=== PATIENT | female | born 1995 | race Asian ===

== ENCOUNTER 2016-12-24 20:04 | Emergency (ER) | payer OTHER, BC ==
[~2016-12-24] VITALS: Ht 165.1 cm; Wt 58.0 kg
[2016-12-24 20:07] VITALS: TEMP 36.5; Ht 165.1 cm; Wt 58.0 kg
[2016-12-24] MEDS ORDERED: TRAMADOL HCL 50 MG HOME PACK PO ONE (20:30)
[2016-12-24] MEDS ORDERED: ONDANSETRON HOME PACK 4MG OD TAB PO ONE (20:30)
[2016-12-24] MEDS ORDERED: ONDA4TAB10 SL (20:31)
[2016-12-24] MEDS ORDERED: TRAM-10 PO (20:31)
[2016-12-24 21:08] VITALS: BP 125/77; PULSE 69; O2SAT 100
--- NOTE | 2016-12-25 00:18 | EMERGENCY ROOM VISIT NOTE ---
History First contact with patient: 20:15 Chief Complaint: FALL Stated Complaint: FELL YESTERDAY,FEELING DIZZY,NAUSEA History of Present Illness The patient is a 21 year old female who presents to the Emergency Room with complaints of persistent headache, dizziness and nausea. The patient reports that she slipped on ice and fell yesterday, striking her head on the ground. There was no loss of consciousness. The patient reports that she did have some dizziness last evening. She woke up this morning and felt fine. After classes were over this afternoon, she went back to her apartment and fell asleep. When she woke up at 5 PM, she had a worsening headache and nausea. She denies any other injuries from her fall except for mild left sided neck pain. The patient denies any prior history of concussions. She currently rates her discomfort a 7 out of 10. Review of Systems 10 system review was performed and was negative except for pertinent positives and negatives as indicated in history of present illness Past Medical/Surgical History Medical Problems: (1) No significant past medical history Surgical Problems: (1) No history of previous surgery Social History Smoking Status: Never Smoker Alcohol Use: none Marital Status: single Occupation Status: [employer] student Current/Historical Medications Scheduled Ondasetron Odt (Zofran Odt), 4 MG SL Q6H Scheduled PRN Tramadol (Ultram), 1-2 TAB PO Q4H PRN for Pain Allergies Coded Allergies: No Known Allergies (Unverified , 12/24/16) Physical Exam Vital Signs Date Time Temp Pulse Resp B/P Pulse Ox O2 Delivery O2 Flow Rate FiO2 12/24/16 21:08 69 18 125/77 100 12/24/16 20:07 36.5 72 18 126/76 100 Room Air Pain Rating (0-10): 6.0 Physical Exam CONSTITUTIONAL: Healthy and well nourished. Alert and oriented X 3 with positive affect. GCS 15. The patient does appear in mild to moderate discomfort from her headache. HEENT: Normocephalic, atraumatic. No scalp hematomas or abrasions. Pupils equal, round and reactive. No subconjunctival hemorrhage, epistaxis, hemotympanum, raccoon's eyes or Hameed sign. NECK: The patient has mild tenderness to palpation of the left sternocleidomastoid muscle. She has no focal tenderness to the central cervical spine or paraspinous muscles. She exhibits full active range of motion without significant discomfort. RESPIRATORY: Clear to auscultation bilaterally with no wheezing, crackles, rhonchi or stridor. CARDIOVASCULAR: Regular rate and rhythm with no murmurs, rubs or gallops. MUSCULOSKELETAL: Patient has no discomfort with range of motion of the shoulders. No tenderness to palpation through the central thoracolumbar spine or ribs. Distal pulses are intact. INTEGUMENTARY: No rash or other significant dermatologic conditions noted. NEUROLOGIC: Cranial nerves II-XII grossly intact. No focal neurologic deficits noted. Normal finger to nose test. Negative pronator drift. No ataxia with ambulation. Medical Decision & Procedures Medications Administered Medications (Trade) Dose Ordered Sig/Elsa Route Start Time Stop Time Status Last Admin Dose Admin Tramadol HCl (Ultram Home Pack) 1 homepack UD ONCE PO 12/24/16 20:30 2 20:31 DC 12/24/16 21:05 1 HOMEPACK Ondansetron HCl (ZOFRAN ODT 4MG Home Pack) 1 homepack UD ONCE PO 12/24/16 20:30 12/24/16 20:31 DC 12/24/16 21:05 1 HOMEPACK ED Course Patient history and physical exam were performed. Nurse's notes were reviewed. Vital signs were reviewed and were normal. I explained to the patient that her symptoms after sustaining a closed head injury are consistent with a concussion. I spent approximately 5-10 minutes in education regarding concussions. I also explained the risk of possible intracranial bleed, which usually causes worsening symptoms. I also discussed CT scanning for cases in which concern for intracranial bleed is a concern. I also discussed the risks with radiation exposure. I discussed conservative management of concussion symptoms, and watchful waiting for any worsening symptoms. Based on our discussion, and with friends present, the patient elected conservative management. The patient was instructed to return to the emergency department for progressively worsening symptoms. Her roommate was with her today. The patient was provided home packs and prescriptions for tramadol and Zofran ODT. She was instructed to refrain from NSAIDs, and take Tylenol as needed for additional pain relief. She may also follow-up with [facility] as needed for further concussion management. The patient was happy with plan of care, voiced understanding of all discharge instructions, and rated her symptoms a 4 out of 10 at the conclusion of my exam. Medical Decision See previous section Impression Primary Impression: Concussion Additional Impression: Fall due to slipping on ice or snow Departure Information Dispostion Home / Self-Care Condition GOOD Prescriptions Ondasetron Odt (ZOFRAN ODT) 4 Mg Tab 4 MG SL Q6H for Nausea, #10 TAB Prov: Gregg Law PA 12/24/16 Tramadol (Ultram) 50 Mg Tab 1-2 TAB PO Q4H Y for Pain, #20 TAB For Initial Treatment Prov: Gregg Law PA 12/24/16 Forms HOME CARE DOCUMENTATION FORM, IMPORTANT VISIT INFORMATION Patient Instructions Concussion, My [facility] Additional Instructions Read concussion handout. Intermittently apply ice to the head and neck for swelling and pain. Tylenol 1000 mg every 6-8 hours. Ultram if needed for worse pain/headache. Zofran ODT if needed for nausea. Avoid strenuous activities until symptoms improve. Return to the emergency department for any progressively worsening symptoms. Follow-up with [facility] as needed for further concussion management. FOR SCHOOL: PLEASE EXCUSE FROM CLASSES/HOMEWORK TH-12/23-12/24/16. Problem Qualifiers Primary Impression: Concussion Encounter type: initial encounter Loss of consciousness presence/duration: without LOC Qualified Codes: S06.0X0A - Concussion without loss of consciousness, initial encounter Additional Impression: Fall due to slipping on ice or snow Encounter type: initial encounter Qualified Codes: W00.9XXA - Unspecified fall due to ice and snow, initial encounter
== END 2016-12-24 21:10 | disposition home or self-care (01) ==
LOC: C.EDB 20:06 → C.EDD 21:10
DX: S06.0X0A Concussion without loss of consciousness, initial encounter (principal); W01.0XXA Fall on same level from slipping, tripping and stumbling without subsequent striking against object, initial encounter

== ENCOUNTER 2016-12-27 14:19 | Emergency (ER) | payer OTHER, BC ==
[~2016-12-27] VITALS: Ht 162.6 cm; Wt 56.5 kg
[~2016-12-27 14:19] MED LIST: ONDA4TAB10 SL; TRAM-10 PO
[2016-12-27 14:25] VITALS: TEMP 36.7; Ht 162.6 cm; Wt 56.5 kg
--- NOTE | 2016-12-27 15:23 | DIAGNOSTIC IMAGING REPORT ---
CT OF THE HEAD WITHOUT CONTRAST CLINICAL HISTORY: Persistent dizziness following head injury. COMPARISON STUDY: No previous studies for comparison. CT DOSE: 614.27 mGy.cm TECHNIQUE: Helical axial images of the head were obtained without IV contrast. Automated exposure control was utilized for the study. FINDINGS: No acute intracranial hemorrhage, midline shift or mass effect is present. Ventricular system is normal. Basilar cisterns are patent. There are no extra-axial collections. Brennan-white differentiation is maintained. There is no calvarial fracture. IMPRESSION: 1. No acute intracranial findings. 2. No calvarial fracture. Electronically signed by: Palmer Julio M.D. 12/27/2016 3:22 PM Dictated Date/Time: 12/27/2016 3:20 PM
--- NOTE | 2016-12-27 15:55 | EMERGENCY ROOM VISIT NOTE ---
ED Visit Note First contact with patient: 14:31 CHIEF COMPLAINT: Head injury HISTORY OF PRESENT ILLNESS: This 21-year-old female patient presented to the emergency department ambulatory complaining of persistent dizziness after a head injury. The patient reports that she sustained a head injury 4 days ago. She was seen in the emergency department at that time and was given prescriptions for nausea and pain. She states that the nausea and headache Improved, but she has persistent dizziness, decreased concentration, and increased fatigue. She is not currently taking any medications for her symptoms. There was no loss of consciousness at the time of the injury. She denies previous head injuries. She denies numbness, weakness, confusion, blurred vision or slurred speech. REVIEW OF SYSTEMS: A review of systems was performed with positives and pertinent negatives listed in the history of present illness. All other systems were reviewed and are negative. ALLERGIES: No known drug allergies MEDICATIONS: No chronic medications PMH: No significant past medical history. SOCIAL HISTORY: The patient lives locally with family. PHYSICAL EXAM: Vital Signs: Reviewed Nurse's notes, vital signs stable. GENERAL : This is a 21-year-old female, in no acute distress, well-developed, well- nourished. NEURO: The patient is alert, oriented to person place and time, and coherent. Normal mini mental status exam. Negative Romberg and pronator drift. Cerebellar function intact. HEAD: Normocephalic. EYES: Pupils are equal round and reactive to light and accommodation. EOMs are full and optic discs and fundi are normal. There is no swelling or discoloration of the tissue surrounding the eyes. EARS: External auditory canals clear without blood. NOSE: Patent without tenderness. No septal hematoma. FACE: No facial bone tenderness. NECK: Supple. There is no cervical spine tenderness. The patient does not have tenderness with movement of the neck. RADIOGRAPHIC FINDINGS: CT OF THE HEAD WITHOUT CONTRAST CLINICAL HISTORY: Persistent dizziness following head injury. COMPARISON STUDY: No previous studies for comparison. CT DOSE: 614.27 mGy.cm TECHNIQUE: Helical axial images of the head were obtained without IV contrast. Automated exposure control was utilized for the study. FINDINGS: No acute intracranial hemorrhage, midline shift or mass effect is present. Ventricular system is normal. Basilar cisterns are patent. There are no extra-axial collections. Brennan-white differentiation is maintained. There is no calvarial fracture. IMPRESSION: 1. No acute intracranial findings. 2. No calvarial fracture. ED COURSE: I examined the patient. CT scan of the head was performed without contrast and revealed no acute intracranial findings. Conservative measures were discussed with the patient. She was instructed to follow-up with [facility] for further evaluation. She verbalized understanding of my assessment and treatment plan. The patient was discharged home in good condition ambulatory. DIAGNOSIS: Head injury Current/Historical Medications Scheduled Ondasetron Odt (Zofran Odt), 4 MG SL Q6H Scheduled PRN Tramadol (Ultram), 1-2 TAB PO Q4H PRN for Pain Allergies Coded Allergies: No Known Allergies (Unverified , 12/27/16) Vital Signs Date Time Temp Pulse Resp B/P Pulse Ox O2 Delivery O2 Flow Rate FiO2 12/27/16 16:08 75 18 111/64 99 12/27/16 14:25 36.7 94 20 108/63 100 Room Air Departure Information Impression Primary Impression: Closed head injury Dispostion Home / Self-Care Condition GOOD Referrals No Doctor, Assigned (PCP) Patient Instructions My [facility] Additional Instructions You have been treated in the Emergency Department for a Closed Head Injury. CT Scan of your head/brain demonstrated no acute bleeding or other abnormalities. This does not completely rule out the risk for future damage to the brain. For pain control, you can use the following [id number] medicines (if >12 yo): - Regular strength (325mg/tab) Tylenol (acetaminophen) 2 tabs every 4-6 hours as needed. Do not exceed 12 tablets in a 24 hour period. Avoid taking more than 4 grams (4000 mg) of Tylenol per day. This includes any other sources of acetaminophen you may take on a regular basis. - Regular strength (200 mg/tab) Advil (ibuprofen) 1-2 tabs every 4-6 hours as needed. Do not exceed a dose of 3200 mg per day. You should relax in a quiet, dark place for the rest of the day. Avoid any possible triggers including: cigarette smoke, caffeine, nicotine, chocolate, wine, beer, loud noises or music, or bright lights. You should schedule a follow-up appointment in 2-3 days with your Primary Care Provider or established Neurologist for further evaluation and treatment of your Headache. You should NOT return to athletic play until reevaluated by your Computer Assembler. You should fully comply with their standard protocol regarding head injuries. Your Computer Assembler OR Primary Care Provider will have the final say in your return to athletic play. This timeframe should be AT LEAST 1 week AFTER the date of last symptoms experienced! This is ESSENTIAL to allow for adequate brain healing time and for reduced risk of re-injury. Return to the Emergency Department if your current symptoms worsen despite treatment course outlined above, or if you develop any of the following symptoms : intractable pain despite aforementioned treatment course, visual disturbances , loss of vision, unilateral weakness or facial drooping, slurring of speech, loss of coordination, or loss of consciousness. Problem Qualifiers Primary Impression: Closed head injury Encounter type: subsequent encounter Qualified Codes: S09.90XD - Unspecified injury of head, subsequent encounter
[2016-12-27 16:08] VITALS: BP 111/64; PULSE 75; O2SAT 99
== END 2016-12-27 16:08 | disposition home or self-care (01) ==
LOC: C.EDB 14:21 → C.EDD 16:08
DX: S09.90XA Unspecified injury of head, initial encounter (principal); X58.XXXA Exposure to other specified factors, initial encounter